=== PATIENT | male | born 1965 | race Caucasian/White ===

== ENCOUNTER 2025-04-08 22:16 | Emergency (ER) | payer OTHER ==
[~2025-04-08] VITALS: Ht 167.6 cm; Wt 78.0 kg
[2025-04-08 22:28] VITALS: O2SAT 98
[2025-04-08] MEDS: MORPHINE SULFATE 4 MG/ML INJ (FOR IV/IM USE) IV ONE (23:16)
[2025-04-08] MEDS: ONDANSETRON HCL 4MG/2ML INJ IV ONE (23:16)
[2025-04-08 23:23] LABS: BASOPHILS % 0.4 % (0.0-2.0); EOSINOPHILS % 1.0 % (0.0-5.0); HEMATOCRIT. 40.1 % (42.0-52.0); HEMOGLOBIN. 13.6 g/dL (14.0-18.0); LYMPHOCYTES % 14.1 % (20.0-50.0); MEAN PLATELET VOLUME 8.8 fl (7.4-10.4); MONOCYTES % 11.8 % (2.0-8.0); NEUTROPHILS % 72.7 % (40.0-76.0); PLATELET 208 x1000/uL (130-400); RED BLOOD CELL COUNT 4.24 mill/uL (4.7-6.1); RED CELL DISTRIBUTION WIDTH 13.5 % (11.6-14.6)
[2025-04-08 23:26] LABS: CREATININE 0.7 mg/dL (0.6-1.3); TROPONIN I HIGH SENSITIVITY 9 ng/L (3.0-53); UREA NITROGEN BLOOD 13 mg/dL (9-23)
[2025-04-09 02:10] LABS: TROPONIN I HIGH SENSITIVITY 8 ng/L (3.0-53)
[2025-04-09] MEDS: CYCLOBENZAPRINE 10MG TABLET PO ONE (02:34)
[2025-04-09] MEDS: KETOROLAC 15MG/ML VIAL IV ONE (02:34)
[2025-04-09] MEDS ORDERED: CYCL10TA21 MT (03:39)
[2025-04-09] MEDS ORDERED: IBUP-2029 MT (03:39)
[2025-04-09] MEDS ORDERED: IOHEXOL-350 100 ML BOTTLE ONE (03:43)
[2025-04-09 04:48] VITALS: BP 105/64; PULSE 67; RESP 12; TEMP 36.7; O2SAT 98
== END 2025-04-09 05:15 | disposition home or self-care (01) ==
LOC: ER 22:16
DX: M54.6 Pain in thoracic spine (principal); E78.00 Pure hypercholesterolemia, unspecified; I10 Essential (primary) hypertension
CPT/HCPCS: 80048; 83880; 85025; 85379; 84484 ×2; 36415 ×2; 71045; 93005; 96374; 96375; 99285; 71275; J2405; J2270; Q9967; J1885; Z7610